=== PATIENT | male | born 1965 | race African-American/Black ===

== ENCOUNTER 2020-10-13 10:22 | Emergency (ER) | payer OTHER ==
[2020-10-13 11:39] VITALS: BP 159/87
--- NOTE | 2020-10-13 12:15 | XRay Report ---
CHEST PA AND LATERAL VIEWS INDICATION: shortness of breath. COMPARISON: None FINDINGS: Support devices: None Heart: Normal Lungs/Pleura: No acute pulmonary or pleural findings. IMPRESSION: 1. No active disease. Signer Name: Gopi García MD Signed: 10/13/2020 12:10 PM Workstation Name: [id number]
[2020-10-13 14:48] LABS: Hematocrit 45.5 % (35.5-45.6); Hemoglobin 15.1 gm/dl (11.8-15.2); Mean Corpuscular HGB Conc 33 % (32-34); Mean Corpuscular Volume 85 fl (84-94); Platelet Count 341 K/mm3 (140-440); Red Blood Count 5.37 M/mm3 (3.65-5.03); Red Cell Distribution Width 13.5 % (13.2-15.2)
--- NOTE | 2020-10-13 15:00 | Emergency Department Report ---
ED ENT HPI - General Chief complaint: Upper Respiratory Infection Stated complaint: POSS COVID19 Time Seen by Provider: 10/13/20 14:43 Source: patient Mode of arrival: Ambulatory Limitations: No Limitations - History of Present Illness Initial comments: 54 y/o dx wtih COVID-19 5 days ago presents to ED c/o cough, congestion, aches, coryza off an on not improving with OTC mucinex. No hemoptysis or hematemesis. no vomiting but does have diarrhea. -: Gradual Quality: dull Consistency: constant Improves with: none Worsens with: none Associated Symptoms: cough. denies: toothache, tinnitus, hearing loss, discharge from ear - Related Data Previous Rx's Medication Instructions Recorded Last Taken Type Famotidine [Pepcid] 20 mg PO BID #60 tablet 01/17/16 Unknown Rx Ondansetron [Zofran ODT TAB] 8 mg PO Q8HR #10 tab.rapdis 01/17/16 Unknown Rx traMADoL [Ultram] 50 mg PO Q6HR PRN #14 tablet 01/17/16 Unknown Rx Albuterol Mdi (or & Nicu Only) 1 puff IH Q4-6H PRN #1 inha 10/13/20 Unknown Rx [ProAir HFA Inhaler] Benzonatate [Tessalon Perles] 100 mg PO Q8HR #20 capsule 10/13/20 Unknown Rx dexAMETHasone [Decadron] 4 mg PO Q12H #3 tablet 10/13/20 Unknown Rx Allergies Allergy/AdvReac Type Severity Reaction Status Date / Time No Known Allergies Allergy Unverified 01/17/16 09:15 ED Dental HPI - General Chief complaint: Upper Respiratory Infection Stated complaint: POSS COVID19 Time Seen by Provider: 10/13/20 14:43 Source: patient Mode of arrival: Ambulatory Limitations: No Limitations - Related Data Previous Rx's Medication Instructions Recorded Last Taken Type Famotidine [Pepcid] 20 mg PO BID #60 tablet 01/17/16 Unknown Rx Ondansetron [Zofran ODT TAB] 8 mg PO Q8HR #10 tab.rapdis 01/17/16 Unknown Rx traMADoL [Ultram] 50 mg PO Q6HR PRN #14 tablet 01/17/16 Unknown Rx Albuterol Mdi (or & Nicu Only) 1 puff IH Q4-6H PRN #1 inha 10/13/20 Unknown Rx [ProAir HFA Inhaler] Benzonatate [Tessalon Perles] 100 mg PO Q8HR #20 capsule 10/13/20 Unknown Rx dexAMETHasone [Decadron] 4 mg PO Q12H #3 tablet 10/13/20 Unknown Rx Allergies Allergy/AdvReac Type Severity Reaction Status Date / Time No Known Allergies Allergy Unverified 01/17/16 09:15 ED Review of Systems ROS: Stated complaint: POSS COVID19 Other details as noted in HPI Comment: All other systems reviewed and negative ED Past Medical Hx - Past Medical History Previous Medical History?: No - Surgical History Past Surgical History?: No - Social History Smoking Status: Current Some Day Smoker Substance Use Type: Alcohol (occasional) - Medications Home Medications: Home Medications Medication Instructions Recorded Confirmed Last Taken Type Famotidine [Pepcid] 20 mg PO BID #60 tablet 01/17/16 Unknown Rx Ondansetron [Zofran ODT TAB] 8 mg PO Q8HR #10 tab.rapdis 01/17/16 Unknown Rx traMADoL [Ultram] 50 mg PO Q6HR PRN #14 tablet 01/17/16 Unknown Rx Albuterol Mdi (or & Nicu Only) 1 puff IH Q4-6H PRN #1 inha 10/13/20 Unknown Rx [ProAir HFA Inhaler] Benzonatate [Tessalon Perles] 100 mg PO Q8HR #20 capsule 10/13/20 Unknown Rx dexAMETHasone [Decadron] 4 mg PO Q12H #3 tablet 10/13/20 Unknown Rx ED Physical Exam - General Limitations: No Limitations General appearance: alert, in no apparent distress - Head Head exam: Present: atraumatic, normocephalic - Eye Eye exam: Present: normal appearance, PERRL, EOMI Pupils: Present: normal accommodation - ENT ENT exam: Present: normal exam, normal orophraynx, mucous membranes moist - Neck Neck exam: Present: normal inspection, full ROM - Respiratory Respiratory exam: Present: normal lung sounds bilaterally. Absent: respiratory distress, wheezes, rales, rhonchi - Cardiovascular Cardiovascular Exam: Present: regular rate, normal rhythm. Absent: systolic murmur, diastolic murmur, rubs, gallop - GI/Abdominal GI/Abdominal exam: Present: soft, normal bowel sounds - Rectal Rectal exam: Present: deferred - Extremities Exam Extremities exam: Present: normal inspection - Back Exam Back exam: Present: normal inspection - Neurological Exam Neurological exam: Present: alert, oriented X3 - Psychiatric Psychiatric exam: Present: normal affect, normal mood - Skin Skin exam: Present: warm, dry, intact, normal color. Absent: rash ED Course Vital Signs 10/13/20 11:37 Temperature 97.8 F Pulse Rate 88 Respiratory 16 Rate Blood Pressure 159/87 [Right] O2 Sat by Pulse 97 Oximetry ED Medical Decision Making - Lab Data Result diagrams: 10/13/20 14:02 Critical care attestation.: If time is entered above; I have spent that time in minutes in the direct care of this critically ill patient, excluding procedure time. ED Disposition Clinical Impression: Cough, COVID-19 Disposition: DC-01 TO HOME OR SELFCARE Is pt being admited?: No Does the pt Need Aspirin: No Condition: Stable Instructions: COVID-19 Frequently Asked Questions, Cough, Adult, Cough, Adult, [id number], COVID-19: How to Protect Yourself and Others - [facility] [place], Cool Mist Vaporizer Prescriptions: dexAMETHasone [Decadron] 4 mg PO Q12H #3 tablet Albuterol Mdi (or & Nicu Only) [ProAir HFA Inhaler] 1 puff IH Q4-6H PRN #1 inha PRN Reason: Cough Benzonatate [Tessalon Perles] 100 mg PO Q8HR #20 capsule Referrals: [facility] [place] [Other] - 3-5 Days
[2020-10-13 15:10] LABS: Alanine Aminotransferase 43 units/L (7-56); Albumin 4.8 g/dL (3.9-5); Blood Urea Nitrogen 8 mg/dL (9-20); Calcium 9.9 mg/dL (8.4-10.2); Hemolysis Index 4
[2020-10-13 15:21] LABS: BUN/Creatinine Ratio 13
[2020-10-13 16:35] LABS: Band Neutrophils # (Manual) 0.1 K/mm3; Platelet Estimate Consistent w Auto; RBC Morphology Normal; Total Cells Counted 100
== END 2020-10-13 15:15 | disposition home or self-care (01) ==
LOC: ED 10:22
DX: U07.1 COVID-19 (principal); R05 Cough; F17.200 Nicotine dependence, unspecified, uncomplicated; Z79.899 Other long term (current) drug therapy
CPT/HCPCS: 36415; 71046; 80053; 83880; 85007; 85025